=== PATIENT | male | born 1945 | race Caucasian/White ===

== ENCOUNTER → 2024-12-15 08:13 | Outpatient (BNVA) | payer MEDICARE, OTHER, SELFPAY | PROVIDERS: PCP Family Medicine; Visit Provider Specialist | DX: G20.C Parkinsonism, unspecified (principal) | CPT/HCPCS: 99204 ==

== ENCOUNTER → 2025-02-08 10:37 | Outpatient (BNVA) | payer MEDICARE, SELFPAY | PROVIDERS: PCP Family Medicine; Visit Provider Specialist | DX: G20.C Parkinsonism, unspecified (principal); I63.9 Cerebral infarction, unspecified; G46.3 Brain stem stroke syndrome; E11.9 Type 2 diabetes mellitus without complications | CPT/HCPCS: 99214 ==

== ENCOUNTER 2025-03-01 12:38 | Outpatient (CLI) | payer MEDICARE, SELFPAY ==
--- NOTE | 2025-03-01 13:00 | MR_ITS ---
WS: [id number] MRI BRAIN WITH AND WITHOUT CONTRAST HISTORY: I63.9 - Cerebral infarction, unspecified COMPARISON: None available. TECHNIQUE: Multiplanar imaging performed through the brain with MultiHance 20 ml's IV. No acute infarcts are seen. Davila-white matter differentiation is well preserved. Moderate symmetric atrophy. Extensive T2 and FLAIR signal hyperintensities are confluent surrounding the ventricles and extending supraventricular. Additional subcortical T2 and FLAIR signal hyperintensities. No prior infarct. No susceptibility artifacts or prior lacunar infarcts. Ventricles and extra-axial spaces are enlarged. 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 Clivus and pituitary gland are normal. Visualized posterior fossa and brainstem are also normal. Postcontrast images are negative for masses or vascular malformations. Dural venous sinuses are normal. Paranasal sinuses: Well aerated with no significant disease. Mastoid air cells: Normal. Calvarium and scalp: Normal. MR/MR head wo/w con [id number] IMPRESSION: 1. No acute infarct or hemorrhage. 2. No enhancing masses or vascular malformations. 3. Moderate symmetric cerebral and cerebellar atrophy. 4. 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 No prior infarct.
--- NOTE | 2025-03-01 13:45 | MR_ITS ---
WS: [id number] MRA CAROTID ARTERIES HISTORY: I63.9 - Cerebral infarction, unspecified COMPARISON: 06/09/2014 TECHNIQUE: MRA is performed with intravenous gadolinium. MIP and source images are reviewed. Right: Proximal RIGHT common carotid artery is poorly visualized. The remaining carotid arteries intact with mild atherosclerotic disease. No high-grade stenosis. Internal and external carotid arteries are patent. Left: Atherosclerotic disease but no occlusions. Bifurcation is intact. No high- grade stenosis. Subclavian Arteries: Subclavian arteries are both normal. No occlusions. Vertebral Arteries: Normal vertebral arteries. Codominant. MR/MR angio neck w con* [id number] IMPRESSION: 1. Mild atherosclerotic disease within the carotid arteries but no high-grade stenosis or occlusions. 2. Patent vertebral arteries bilaterally.
--- NOTE | 2025-03-01 14:30 | MR_ITS ---
WS: [id number] MRA ANGIOGRAPHY [place] HISTORY: I63.9 - Cerebral infarction, unspecified COMPARISON: None available. TECHNIQUE: 3-D MR angiography is performed of the [place]. All images are reviewed including source images. Distal vertebral and basilar arteries are intact with no significant stenosis or plaque. Posterior cerebral arteries are normal course and caliber. Posterior communicating arteries are both patent. Intracranial carotid arteries the cavernous sinuses are irregular from atherosclerotic disease. No occlusions. Stenoses approaching 50% bilaterally. Middle cerebral arteries are patent with mild irregularity of the lumen. There is no occlusion. No aneurysms are identified. Anterior cerebral arteries are normal. Incidental note is made of a cavum septum pellucidum et vergae. Midline fluid collection in the posterior fossa arachnoid cyst versus amber cisterna magna. MR/MR angio head wo con [id number] IMPRESSION: 1. Atherosclerotic disease without high-grade stenosis or occlusion involving the distal intracranial carotid arteries and the M1 segments, bilateral. 2. No aneurysms. 3. Patent vertebral arteries.
== END 2025-03-01 12:39 | disposition home or self-care (01) ==
LOC: RAD 12:40
PROVIDERS: PCP Family Medicine; Visit Provider Specialist
DX: I63.233 Cerebral infarction due to unspecified occlusion or stenosis of bilateral carotid arteries (principal); G31.9 Degenerative disease of nervous system, unspecified
CPT/HCPCS: 70544; 70548; 70553

== ENCOUNTER 2025-03-18 11:06 | Outpatient (CLI) | payer MEDICARE, SELFPAY ==
[2025-03-18 12:14] LABS: Creatinine Urine, Random 62 mg/dL (39-259); Microalbum Creatinine Ratio Ur 16 mg/dL (0-20)
[2025-03-18 12:16] LABS: Estmated Average Glucose 217; Hemoglobin A1C 9.2 % (4.0-6.0)
[2025-03-18 12:23] LABS: Alanine Aminotransferase 9 U/L (0-41); Albumin Level 4.2 g/dL (3.5-5.2); Alkaline Phosphatase 108 U/L (40-130); Anion Gap 19.2 (5-19); Aspartate Amino Transferase 12 U/L (0-40); Blood Urea Nitrogen 12 mg/dL (8-23); Calcium 9.3 mg/dL (8.5-10.5); Carbon Dioxide 22 mmol/L (22-29); Chloride 98 mmol/L (98-107); Cholesterol 152 mg/dL (0-200); Globulin 3.1 g/dL (1.3-4.6); Glucose 400 mg/dL (65-115); HDL Cholesterol 50 mg/dL (60-100); Osmolality Calculated 297 mOsm/kg (285-295); Potassium 4.2 mmol/L (3.5-5.1); Sodium 135 mmol/L (136-145); Total Protein 7.3 g/dL (6.6-8.7); Triglycerides 137 mg/dL (0-150)
== END 2025-03-18 11:07 | disposition home or self-care (01) ==
PROVIDERS: PCP Family Medicine; Visit Provider Internal Medicine
DX: E78.2 Mixed hyperlipidemia (principal); E11.9 Type 2 diabetes mellitus without complications
CPT/HCPCS: 36415; 80053; 80061; 82044; 83036; 99214

== ENCOUNTER → 2025-04-20 11:03 | Outpatient (BNVA) | payer MEDICARE, SELFPAY | PROVIDERS: PCP Family Medicine; Visit Provider Specialist | DX: G20.C Parkinsonism, unspecified (principal); G46.3 Brain stem stroke syndrome; E11.9 Type 2 diabetes mellitus without complications | CPT/HCPCS: 99214 ==

== ENCOUNTER → 2025-06-23 10:57 | Outpatient (BNVA) | payer MEDICARE, SELFPAY | PROVIDERS: PCP Family Medicine; Visit Provider Specialist | DX: G31.83 Neurocognitive disorder with Lewy bodies (principal); F02.80 Dementia in other diseases classified elsewhere, unspecified severity, without behavioral disturbance, psychotic disturbance, mood disturbance, and anxiety; G20.C Parkinsonism, unspecified; E11.9 Type 2 diabetes mellitus without complications; R03.0 Elevated blood-pressure reading, without diagnosis of hypertension; F06.30 Mood disorder due to known physiological condition, unspecified; M48.062 Spinal stenosis, lumbar region with neurogenic claudication | CPT/HCPCS: 99215 ==